=== PATIENT | female | born 1960 | race Caucasian/White ===

== ENCOUNTER 2017-12-16 12:46 | Outpatient (REF) | payer BC, SELFPAY ==
[2017-12-16 22:37] LABS: HCT 41.4 % (36.0-46.0); HGB 13.5 g/dL (12.0-15.5); Mean Corp. HGB Concentration 32.6 g/dL (32.0-36.0); Mean Corpuscular Hemoglobin 30.8 pg (27.0-33.0); Mean Corpuscular Volume 94.3 fL (80-95); Mean Platelet Volume 9.7 fL (8.0-11.0); Platelet Count 368 x1000/uL (130-400); RBC 4.39 m/cumm (4.00-5.20); RBC Distribution Width 13.2 % (11.7-14.6)
[2017-12-16 22:51] LABS: ALT 34 U/L (12-78); AST 21 U/L (15-37); Albumin 3.8 g/dL (3.4-5.0); Alkaline Phosphatase 59 U/L (46-116); Anion Gap 4.8 mmol/L (3-11); BUN 12 mg/dL (7-18); Bilirubin, Total 0.4 mg/dL (0.2-1.0); CO2 30.2 mmol/L (21.0-32.0); CREATININE 0.87 mg/dL (0.55-1.02); Calcium 8.8 mg/dL (8.5-10.1); Chloride 104 mmol/L (98-107); Cholesterol 234 mg/dL (50-200); Glucose 90 mg/dL (70-100); HDL Cholesterol 83 mg/dL (40-60); LDL CHOLESTEROL 133 mg/dL (<100); Potassium 4.5 mmol/L (3.5-5.1); Sodium 139 mmol/L (136-145); TSH 0.11 uIU/mL (0.358-3.74); Total Protein 6.8 g/dL (6.4-8.2); Triglyceride 108 mg/dL (30-150)
== END 2017-12-16 13:06 ==
LOC: NCHCN 12:46
PROVIDERS: PCP Registered Nurse; Visit Provider Registered Nurse
DX: Z00.00 Encounter for general adult medical examination without abnormal findings (principal); E03.9 Hypothyroidism, unspecified; Z79.899 Other long term (current) drug therapy
CPT/HCPCS: 80053; 80061; 83721; 85027; 84443

== ENCOUNTER 2018-02-09 10:19 | Outpatient (REF) | payer BC, SELFPAY ==
[2018-02-09 22:09] LABS: TSH (W/Ref FT4) 0.33 uIU/mL (0.358-3.74)
[2018-02-09 22:25] LABS: FREE T4 1.22 ng/dL (0.76-1.46)
== END 2018-02-09 10:39 ==
LOC: NCHCN 10:19
PROVIDERS: PCP Registered Nurse; Visit Provider Registered Nurse
DX: E83.51 Hypocalcemia (principal); E03.9 Hypothyroidism, unspecified; E89.0 Postprocedural hypothyroidism
CPT/HCPCS: 84439; 84443

== ENCOUNTER 2018-03-24 09:47 | Outpatient (REF) | payer BC, SELFPAY ==
[2018-03-24 22:20] LABS: TSH (W/Ref FT4) 2.28 uIU/mL (0.358-3.74)
== END 2018-03-24 10:07 ==
LOC: NCHCN 09:47
PROVIDERS: Visit Provider Registered Nurse
DX: E03.9 Hypothyroidism, unspecified (principal); E83.51 Hypocalcemia; E89.0 Postprocedural hypothyroidism
CPT/HCPCS: 84443

== ENCOUNTER 2018-05-12 10:25 | Outpatient (REF) | payer BC, SELFPAY ==
[2018-05-12 22:04] LABS: TSH (W/Ref FT4) 0.54 uIU/mL (0.358-3.74)
== END 2018-05-12 10:45 ==
LOC: NCHCN 10:25
PROVIDERS: PCP Registered Nurse; Visit Provider Registered Nurse
DX: E89.0 Postprocedural hypothyroidism (principal)
CPT/HCPCS: 84443

== ENCOUNTER 2018-12-27 15:47 | Outpatient (REF) | payer BC, SELFPAY ==
[2018-12-27 21:34] LABS: HCT 37.9 % (36.0-46.0); HGB 12.3 g/dL (12.0-15.5); Mean Corp. HGB Concentration 32.5 g/dL (32.0-36.0); Mean Corpuscular Hemoglobin 30.9 pg (27.0-33.0); Mean Corpuscular Volume 95.2 fL (80-95); Mean Platelet Volume 9.3 fL (8.0-11.0); Platelet Count 385 x1000/uL (130-400); RBC 3.98 m/cumm (4.00-5.20); RBC Distribution Width 12.9 % (11.7-14.6); White Blood Cell Count 5.51 k/cumm (4.4-10.8)
[2018-12-27 22:13] LABS: ALT 23 U/L (14-59); AST 15 U/L (15-37); Albumin 3.6 g/dL (3.4-5.0); Alkaline Phosphatase 54 U/L (46-116); Anion Gap 8.9 mmol/L (3-11); BUN 16 mg/dL (7-18); Bilirubin, Total 0.2 mg/dL (0.2-1.0); CO2 28.1 mmol/L (21.0-32.0); Calcium 8.8 mg/dL (8.5-10.1); Chloride 104 mmol/L (98-107); Estimated GFR 56.75 (mL/min/1.73m2); Glucose 98 mg/dL (70-100); Potassium 4.4 mmol/L (3.5-5.1); Sodium 141 mmol/L (136-145); TSH 1.17 uIU/mL (0.36-3.74); Total Protein 6.7 g/dL (6.4-8.2)
== END 2018-12-27 16:07 ==
LOC: NCHCN 15:47
PROVIDERS: PCP Registered Nurse; Visit Provider Registered Nurse
DX: E03.9 Hypothyroidism, unspecified (principal); Z79.899 Other long term (current) drug therapy
CPT/HCPCS: 80053; 85027; 84443

== ENCOUNTER 2019-12-29 17:24 | Outpatient (REF) | payer BC, SELFPAY ==
[2019-12-29 21:40] LABS: TSH 0.26 uIU/mL (0.36-3.74)
== END 2019-12-29 17:44 ==
LOC: NCHCN 17:24
PROVIDERS: PCP Registered Nurse; Visit Provider Registered Nurse
DX: E03.9 Hypothyroidism, unspecified (principal)
CPT/HCPCS: 84443

== ENCOUNTER 2020-01-06 09:10 | Outpatient (REF) | payer BC, SELFPAY ==
[2020-01-06 21:59] LABS: Calculated LDL 154 mg/dL (<100); Cholesterol 242 mg/dL (<200); HDL Cholesterol 70 mg/dL (40-60); Triglyceride 92 mg/dL (<150)
== END 2020-01-06 09:30 ==
LOC: NCHCN 09:10
PROVIDERS: PCP Registered Nurse; Visit Provider Registered Nurse
DX: Z00.00 Encounter for general adult medical examination without abnormal findings (principal)
CPT/HCPCS: 80061

== ENCOUNTER 2020-03-14 15:36 | Outpatient (REF) | payer BC, SELFPAY ==
[2020-03-14 23:10] LABS: TSH (W/Ref FT4) 0.47 uIU/mL (0.36-3.74)
[2020-03-15 17:08] LABS: T3,Free 3.6 pg/mL (2.8-5.3)
[2020-03-15 17:21] LABS: T3, Total 102 ng/dL (97-169)
== END 2020-03-14 15:56 ==
LOC: NCHCN 15:36
PROVIDERS: PCP Registered Nurse; Visit Provider Registered Nurse
DX: E03.9 Hypothyroidism, unspecified (principal)
CPT/HCPCS: 84443; 84480; 84481

== ENCOUNTER 2020-05-18 20:17 | Outpatient (REF) | payer BC, SELFPAY ==
[2020-05-18 21:28] LABS: Anion Gap 7.2 mmol/L (3-11); BUN 13 mg/dL (7-18); CO2 30.8 mmol/L (21.0-32.0); CREATININE 0.9 mg/dL (0.55-1.02); Calcium 9.5 mg/dL (8.5-10.1); Chloride 103 mmol/L (98-107); Glucose 103 mg/dL (74-106); Potassium 4.1 mmol/L (3.5-5.1); Sodium 141 mmol/L (136-145)
[2020-05-21 06:00] LABS: Vitamin D 25 Total 32.8 ng/ml (30-100)
== END 2020-05-18 20:18 | disposition home or self-care (01) ==
LOC: NCHCN 20:17
PROVIDERS: PCP Registered Nurse; Visit Provider Registered Nurse
DX: K52.9 Noninfective gastroenteritis and colitis, unspecified (principal)
CPT/HCPCS: 80048; 82306

== ENCOUNTER 2020-09-24 08:43 | Outpatient (REF) | payer BC, SELFPAY ==
[2020-09-24 15:08] LABS: Calculated LDL 120 mg/dL (<100); Cholesterol 207 mg/dL (<200); HDL Cholesterol 72 mg/dL (40-60); TSH 0.16 uIU/mL (0.36-3.74); Triglyceride 78 mg/dL (<150)
[2020-09-24 15:20] LABS: Vitamin D 25 Total 38.4 ng/mL (30-100)
== END 2020-09-24 08:44 | disposition home or self-care (01) ==
LOC: NCHCN 08:43
PROVIDERS: PCP Registered Nurse; Visit Provider Registered Nurse
DX: Z00.00 Encounter for general adult medical examination without abnormal findings (principal); E03.9 Hypothyroidism, unspecified; E55.9 Vitamin D deficiency, unspecified; M85.80 Other specified disorders of bone density and structure, unspecified site
CPT/HCPCS: 80061; 82306; 84443

== ENCOUNTER 2021-01-10 15:06 | Outpatient (REF) | payer BC, SELFPAY ==
[2021-01-10 15:03] LABS: TSH (W/Ref FT4) 1.32 uIU/mL (0.36-3.74)
== END 2021-01-10 15:07 | disposition home or self-care (01) ==
LOC: NCHCN 15:06
PROVIDERS: PCP Registered Nurse; Visit Provider Registered Nurse
DX: E03.9 Hypothyroidism, unspecified (principal)
CPT/HCPCS: 84443

== ENCOUNTER 2021-12-05 17:25 | Outpatient (REF) | payer BC, SELFPAY ==
[2021-12-05 22:39] LABS: Anion Gap 6.1 mmol/L (3-11); BUN 16 mg/dL (7-18); CO2 29.9 mmol/L (21.0-32.0); Chloride 104 mmol/L (98-107); Estimated GFR 64.09 (mL/min/1.73m2); Glucose 115 mg/dL (74-106); Potassium 4.1 mmol/L (3.5-5.1); Sodium 140 mmol/L (136-145)
== END 2021-12-05 17:26 | disposition home or self-care (01) ==
LOC: NCHCN 17:25
PROVIDERS: PCP Registered Nurse; Visit Provider Registered Nurse
DX: U07.1 COVID-19 (principal); Z51.81 Encounter for therapeutic drug level monitoring
CPT/HCPCS: 80048

== ENCOUNTER 2022-01-16 15:12 | Outpatient (REF) | payer BC, SELFPAY ==
[2022-01-16 15:17] LABS: ALT 39 U/L (14-59); AST 30 U/L (15-37); Albumin 3.8 g/dL (3.4-5.0); Alkaline Phosphatase 62 U/L (46-116); Anion Gap 6.8 mmol/L (3-11); BUN 14 mg/dL (7-18); Bilirubin, Total 0.4 mg/dL (0.2-1.0); CO2 28.2 mmol/L (21.0-32.0); CREATININE 0.9 mg/dL (0.55-1.02); Calcium 8.8 mg/dL (8.5-10.1); Calculated LDL 125 mg/dL (<100); Chloride 107 mmol/L (98-107); Cholesterol 237 mg/dL (<200); Estimated GFR 72.28 (mL/min/1.73m2); Glucose 94 mg/dL (74-106); HDL Cholesterol 96 mg/dL (40-60); Potassium 4.2 mmol/L (3.5-5.1); Sodium 142 mmol/L (136-145); TSH 1.19 uIU/mL (0.36-3.74); Total Protein 7.1 g/dL (6.4-8.2); Triglyceride 82 mg/dL (<150)
[2022-01-16 17:10] LABS: Vitamin D 25 Total 36.4 ng/mL (30-100)
== END 2022-01-16 15:13 | disposition home or self-care (01) ==
LOC: NCHCN 15:12
PROVIDERS: PCP Registered Nurse; Visit Provider Registered Nurse
DX: E03.9 Hypothyroidism, unspecified (principal); Z00.00 Encounter for general adult medical examination without abnormal findings
CPT/HCPCS: 80053; 80061; 82306; 84443

== ENCOUNTER 2022-07-23 13:54 | Outpatient (REF) | payer BC, SELFPAY ==
[2022-07-23 14:04] LABS: TSH 0.58 uIU/mL (0.36-3.74)
== END 2022-07-23 13:55 | disposition home or self-care (01) ==
LOC: NCHCN 13:54
PROVIDERS: PCP Registered Nurse; Visit Provider Registered Nurse
DX: E03.9 Hypothyroidism, unspecified (principal)
CPT/HCPCS: 84443

== ENCOUNTER 2022-09-10 12:29 | Outpatient (REF) | payer BC, SELFPAY ==
--- NOTE | 2022-09-10 11:30 | PAPFT_PTH ---
PATIENT: Yamilka Pina LOC: [facility]#:[id number] AGE/SX: 61/F ROOM: RE09/10/[address]: Nimisha Allen : 1960 BED: DIS: 09/10/2022 SPEC #: [id number] RECD: 09/11/22 12:53 STATUS: ERIKA REQ #: [id number] SHILO: 09/10/22 11:[address]: Nimisha Allen DEPT: [facility] Cytology RECD BY: Linda Flores Tissues: 1 - CX/ENDOCX FOR PAP SMEARS Procedures: PAP THIN PREP/[facility] Screening HPV DNA PROBE Comments: [id number]
[2022-09-10 21:43] LABS: TSH 0.12 uIU/mL (0.36-3.74)
== END 2022-09-10 12:30 | disposition home or self-care (01) ==
LOC: NCHCN 12:29
PROVIDERS: PCP Registered Nurse; Visit Provider Registered Nurse
DX: Z01.00 Encounter for examination of eyes and vision without abnormal findings (principal); E03.9 Hypothyroidism, unspecified
CPT/HCPCS: 88142; 84443; 87624

== ENCOUNTER 2022-12-02 11:06 | Outpatient (REF) | payer BC, SELFPAY ==
[2022-12-02 15:45] LABS: TSH 0.58 uIU/mL (0.36-3.74)
== END 2022-12-02 11:07 | disposition home or self-care (01) ==
LOC: NCHCN 11:06
PROVIDERS: PCP Registered Nurse; Visit Provider Family Medicine
DX: E03.9 Hypothyroidism, unspecified (principal)
CPT/HCPCS: 84443

== ENCOUNTER 2023-01-14 09:44 | Outpatient (REF) | payer BC, SELFPAY ==
[2023-01-14 16:22] LABS: Anion Gap 7.2 mmol/L (3-11); BUN 14 mg/dL (7-18); CO2 28.8 mmol/L (21.0-32.0); Calcium 9.3 mg/dL (8.5-10.1); Chloride 104 mmol/L (98-107); Glucose 100 mg/dL (74-106); Potassium 4.4 mmol/L (3.5-5.1); Sodium 140 mmol/L (136-145); TSH 2.93 uIU/mL (0.36-3.74)
[2023-01-14 16:36] LABS: Vitamin D 25 Total 36.8 ng/mL (30-100)
== END 2023-01-14 09:45 | disposition home or self-care (01) ==
LOC: NCHCN 09:44
PROVIDERS: PCP Registered Nurse; Visit Provider Family Medicine
DX: Z00.00 Encounter for general adult medical examination without abnormal findings (principal); E03.9 Hypothyroidism, unspecified; F41.9 Anxiety disorder, unspecified
CPT/HCPCS: 80048; 82306; 84443

== ENCOUNTER 2023-03-18 15:40 | Outpatient (REF) | payer BC, SELFPAY ==
[2023-03-18 16:07] LABS: TSH (W/Ref FT4) 1.65 uIU/mL (0.36-3.74)
== END 2023-03-18 15:41 | disposition home or self-care (01) ==
LOC: NCHCN 15:40
PROVIDERS: PCP Registered Nurse; Visit Provider Family Medicine
DX: E03.9 Hypothyroidism, unspecified (principal)
CPT/HCPCS: 84443

== ENCOUNTER 2023-06-25 08:37 | Outpatient (REF) | payer BC, SELFPAY ==
[2023-06-25 15:18] LABS: ALT 36 U/L (14-59); AST 26 U/L (15-37); Albumin 3.7 g/dL (3.4-5.0); Alkaline Phosphatase 62 U/L (46-116); Anion Gap 6.7 mmol/L (3-11); BUN 13 mg/dL (7-18); Bilirubin, Direct 0.1 mg/dL (0.0-0.2); Bilirubin, Total 0.5 mg/dL (0.2-1.0); CO2 31.3 mmol/L (21.0-32.0); Calcium 8.7 mg/dL (8.5-10.1); Chloride 107 mmol/L (98-107); Glucose 99 mg/dL (74-106); Potassium 4.6 mmol/L (3.5-5.1); Sodium 145 mmol/L (136-145); TSH (W/Ref FT4) 1.04 uIU/mL (0.36-3.74); Total Protein 6.8 g/dL (6.4-8.2)
== END 2023-06-25 08:38 | disposition home or self-care (01) ==
LOC: NCHCN 08:37
PROVIDERS: PCP Registered Nurse; Visit Provider Family Medicine
DX: K21.9 Gastro-esophageal reflux disease without esophagitis (principal); E03.9 Hypothyroidism, unspecified
CPT/HCPCS: 80048; 80076; 84443

== ENCOUNTER 2024-02-15 15:47 | Outpatient (REF) | payer BC, SELFPAY ==
[2024-02-15 16:20] LABS: ALT 45 U/L (14-59); AST 29 U/L (15-37); Albumin 3.5 g/dL (3.4-5.0); Alkaline Phosphatase 62 U/L (46-116); BUN 14 mg/dL (7-18); Bilirubin, Total 0.48 mg/dL (0.2-1.0); Calcium 8.7 mg/dL (8.5-10.1); Chloride 106 mmol/L (98-107); Estimated GFR 62.91 (mL/min/1.73m2); Glucose 97 mg/dL (74-106); Potassium 4.4 mmol/L (3.5-5.1); Sodium 142 mmol/L (136-145); TSH (W/Ref FT4) 2.98 uIU/mL (0.36-3.74); Total Protein 6.9 g/dL (6.4-8.2); Vitamin D 25 Total 42.4 ng/mL (30-100)
== END 2024-02-15 15:48 | disposition home or self-care (01) ==
LOC: NCHCN 15:47
PROVIDERS: PCP Registered Nurse; Visit Provider Family Medicine
DX: E03.9 Hypothyroidism, unspecified (principal); E55.9 Vitamin D deficiency, unspecified; K51.90 Ulcerative colitis, unspecified, without complications
CPT/HCPCS: 80053; 82306; 84443

== ENCOUNTER 2024-04-11 14:38 | Outpatient (REF) | payer BC, SELFPAY ==
[2024-04-11 16:35] LABS: TSH (W/Ref FT4) 1.37 uIU/mL (0.36-3.74)
== END 2024-04-11 14:39 | disposition home or self-care (01) ==
LOC: NCHCN 14:38
PROVIDERS: PCP Registered Nurse; Visit Provider Family Medicine
DX: E03.9 Hypothyroidism, unspecified (principal)
CPT/HCPCS: 84443

== ENCOUNTER 2024-07-25 16:01 | Outpatient (REF) | payer BC, SELFPAY ==
[2024-07-25 16:32] LABS: ALT 23 U/L (14-59); AST 22 U/L (15-37); Albumin 3.8 g/dL (3.4-5.0); Alkaline Phosphatase 58 U/L (46-116); Bilirubin, Direct 0.1 mg/dL (0.0-0.2); Bilirubin, Total 0.5 mg/dL (0.2-1.0); Total Protein 6.9 g/dL (6.4-8.2)
== END 2024-07-25 16:02 | disposition home or self-care (01) ==
LOC: LBN 16:01
PROVIDERS: PCP Registered Nurse; Visit Provider Internal Medicine Gastroenterology
DX: R79.89 Other specified abnormal findings of blood chemistry (principal)
CPT/HCPCS: 80076